=== PATIENT | male | born 1950 | race Caucasian/White ===

== ENCOUNTER 2017-07-17 11:03 | Day surgery (SDC) | payer MEDICARE, BC ==
[~2017-07-17 11:03] MED LIST: 0.9 % SODIUM CHLORIDE 10 ML DISP.SYRIN. IV; HYDROmorphone 2 MG/ML VIAL IV; LIDOCAINE 1% PF 2 ML VIAL. ID; MORPHINE SULFATE 2 MG/ML DISP.SYRIN. IV; ONDANSETRON PF 4 MG/2 ML VIAL. IV; PROCHLORPERAZINE 10 MG/2 ML VIAL. IV; fentaNYL PF VIAL 100 MCG/2 ML VIAL IV
[2017-07-17] MEDS: IV RINGERS,LACTATED 1000ML 1,000 ML IV (11:54)
[2017-07-17 12:26] LABS: ANION GAP 8 (6-14); BLOOD UREA NITROGEN 15 mg/dL (8-26); CALCIUM 8.4 mg/dL (8.5-10.1); CARBON DIOXIDE 31 mmol/L (21-32); CHLORIDE 103 mmol/L (98-107); CREATININE 0.8 mg/dL (0.7-1.3); GFR 95.8; GLUCOSE 131 mg/dL (70-99); MAGNESIUM 1.8 mg/dL (1.8-2.4); POTASSIUM 4.5 mmol/L (3.5-5.1); SODIUM 142 mmol/L (136-145)
[2017-07-17] MEDS ORDERED: PROPOFOL 20 ML IV (13:22)
== END 2017-07-17 15:33 | disposition home or self-care (01) ==
LOC: SURG 11:03
DX: I48.92 Unspecified atrial flutter (principal); I11.0 Hypertensive heart disease with heart failure; I50.9 Heart failure, unspecified; Z96.653 Presence of artificial knee joint, bilateral; Z98.41 Cataract extraction status, right eye; Z87.891 Personal history of nicotine dependence
CPT/HCPCS: 36415; 80048; 83735; 92960; 93005; J2704

== ENCOUNTER → 2018-02-23 | Outpatient (CLI) | payer MEDICARE, BC ==
[2017-07-17 14:11] VITALS: BP 138/80
[~2018-02-23] MED LIST changes: -0.9 % SODIUM CHLORIDE 10 ML DISP.SYRIN. IV; +AMLO10TA2 PO; +APIX5TAB PO; +ASPI-482 PO; +AZIT250T6 PO; +FURO-69 PO; +GUAI600T47 PO; -HYDROmorphone 2 MG/ML VIAL IV; -LIDOCAINE 1% PF 2 ML VIAL. ID; +LISI-334 PO; +METO100T7 PO; -MORPHINE SULFATE 2 MG/ML DISP.SYRIN. IV; -ONDANSETRON PF 4 MG/2 ML VIAL. IV; +POTA10TA12 PO; -PROCHLORPERAZINE 10 MG/2 ML VIAL. IV; +SIMV40TA3 PO; -fentaNYL PF VIAL 100 MCG/2 ML VIAL IV
--- NOTE | 2018-02-23 09:53 | CARD ---
MR#: [id number] Date of Study: 02/23/2018 Ordering Physician: SHON RUSSELL, Referring Physician: Kandace CUEVAS: YESSICA Hickey APPROVED REPORT EXAM: Two-dimensional and M-mode echocardiogram with Doppler and color Doppler. Other Information Quality : AverageHR: 66bpm Technically limited study due to body habitus. INDICATION Sick sinus syndrome RISK FACTORS Hypertension Obesity 2D DIMENSIONS RVDd3.9 (2.9-3.5cm)Left Atrium(2D)3.3 (1.6-4.0cm) IVSd1.5 (0.7-1.1cm)Aortic Root(2D)2.8 (2.0-3.7cm) LVDd4.8 (3.9-5.9cm)LVOT Diameter2.0 (1.8-2.4cm) PWd1.5 (0.7-1.1cm)LVDs3.5 (2.5-4.0cm) FS (%) 28.1 %SV59.2 ml LVEF(%)54.2 (>50%) Aortic Valve AoV Peak Jack.152.0cm/sAoV VTI27.3cm AO Peak GR.9.2mmHgLVOT Peak Jack.128.1cm/s LVOT VTI 26.33cmAO Mean GR.5mmHg [place] (VMAX)1.12ce3CDW (VTI)3.10cm2 AI P 1/2 Cobe327gf Mitral Valve MV E Uccvcpmq18.8cm/sMV DECEL [id number] MV A Phqfcmdf28.6cm/sMV LYX143xw E/A Ratio0.6MVA (PHT)1.52cm2 TDI E/Lateral E'8.7E/Medial E'8.7 Pulmonary Valve PV Peak Weprjcbh929.6cm/sPV Peak Grad.7mmHg Tricuspid Valve TR P. Ezdsxsjm365hz/sTR Peak Gr.11mmHg Pulmonary Vein S1 Ozulvjxz66.2cm/sD2 Pwjnjgge96.2cm/s LEFT VENTRICLE The left ventricle is normal size. There is mild to moderate concentric left ventricular hypertrophy. Proximal septal thickening is noted. The left ventricular systolic function is normal. The ejection fraction is estimated at 55-60%. There is normal LV segmental wall motion. Transmitral Doppler flow p attern is Grade I-abnormal relaxation pattern. RIGHT VENTRICLE The right ventricle is normal size. The right ventricular systolic function is normal. ATRIA The left atrium size is normal. The right atrium size is normal. The interatrial septum is intact wit h no evidence for an atrial septal defect or patent foramen ovale as noted on 2-D or Doppler imaging. AORTIC VALVE The aortic valve is mildly calcified. The aortic valve is not well visualized. Doppler and Color Flow revealed mild aortic regurgitation. There is no significant aortic valvular stenosis. There is no ao rtic valvular vegetation. MITRAL VALVE The mitral valve is mildly thickened. There is no evidence of mitral valve prolapse. There is no mitr al valve stenosis. Doppler and Color Flow revealed no mitral valve regurgitation noted. TRICUSPID VALVE The tricuspid valve leaflets are thickened , but open well. Doppler and Color Flow revealed trace tri cuspid regurgitation. There is no tricuspid valve prolapse or vegetation. There is no tricuspid valve stenosis. PULMONIC VALVE The pulmonic valve is not well visualized. Doppler and Color Flow revealed no pulmonic valvular regur gitation. There is no pulmonic valvular stenosis. GREAT VESSELS The aortic root is not well visualized. The IVC was not visualized. PERICARDIAL EFFUSION There is no pleural effusion. There is no evidence of significant pericardial effusion. Critical Notification Critical Value: No <Conclusion> The left ventricular systolic function is normal. The ejection fraction is estimated at 55-60%. There is normal LV segmental wall motion. Transmitral Doppler flow pattern is Grade I-abnormal relaxation pattern. Mild aortic regurgitation. Trace tricuspid regurgitation. There is no evidence of significant pericardial effusion. Signed by : Shon Russell, Electronically Approved : 02/23/2018 09:52:23
== END | disposition home or self-care (01) ==
LOC: ECHO 07:11
PROVIDERS: ATTEND Internal Medicine Cardiovascular Disease
DX: I35.1 Nonrheumatic aortic (valve) insufficiency (principal); I11.0 Hypertensive heart disease with heart failure; I50.9 Heart failure, unspecified; E11.9 Type 2 diabetes mellitus without complications; E78.5 Hyperlipidemia, unspecified; J44.1 Chronic obstructive pulmonary disease with (acute) exacerbation; K21.9 Gastro-esophageal reflux disease without esophagitis; Z87.891 Personal history of nicotine dependence; Z96.653 Presence of artificial knee joint, bilateral; Z82.49 Family history of ischemic heart disease and other diseases of the circulatory system
CPT/HCPCS: 93306

== ENCOUNTER → 2019-04-27 | Outpatient (CLI) | payer MEDICARE, BC ==
[2017-07-17 14:11] VITALS: BP 138/80
[~2019-04-27] MED LIST changes: -AMLO10TA2 PO; +AMLO10TA8 PO
--- NOTE | 2019-04-27 08:39 | CARD ---
MR#: [id number] Date of Study: 04/27/2019 Ordering Physician: SHON POWELL, Referring Physician: SHON POWELL Tech: Kathie Pina RDCS APPROVED REPORT EXAM: Two-dimensional and M-mode echocardiogram with Doppler and color Doppler. Other Information Quality : Technically LimitedHR: 78bpm Rhythm : OtherTechnically limited study due to body habitus, heart rate, and smoking. INDICATION SSS 2D DIMENSIONS RVDd3.7 (2.9-3.5cm)Left Atrium(2D)3.5 (1.6-4.0cm) IVSd1.6 (0.7-1.1cm)Aortic Root(2D)3.5 (2.0-3.7cm) LVDd4.3 (3.9-5.9cm)LVOT Diameter2.2 (1.8-2.4cm) PWd1.2 (0.7-1.1cm)LVDs3.5 (2.5-4.0cm) FS (%) 17.9 %SV30.9 ml LVEF(%)37.5 (>50%) Aortic Valve AoV Peak Jack.130.3cm/sAoV VTI23.3cm AO Peak GR.6.8mmHgLVOT Peak Jack.93.6cm/s AO Mean GR.4mmHgAVA (VMAX)2.80cm2 [place] (VTI)2.73tr9OR P 1/2 Xbun717xb Mitral Valve MV E Exivjily32.0cm/sMV DECEL UBRP435nb MV A Lkocchyz712.3cm/sE/A Ratio0.6 Pulmonary Valve PV Peak Ilfjytob06.5cm/s Tricuspid Valve TR P. Iikhnyqy267cs/sRAP BXKRTLTG4naHo TR Peak Gr.85liXpIJMK08yaKt LEFT VENTRICLE The left ventricle is normal size. There is mild to moderate concentric left ventricular hypertrophy. The systolic function is severely impaired. EF 30% There is global hypokinesis of the left ventricle with septal motion suggestive of conduction defect. Tissue Doppler imaging reveals moderate left aliya tricular diastolic dysfunction. RIGHT VENTRICLE The right ventricle is borderline dilated. There is normal right ventricular wall thickness. The righ t ventricular systolic function is normal. Pacer lead noted in RV/RA. ATRIA The left atrium size is normal. The right atrium size is normal. The interatrial septum is intact wit h no evidence for an atrial septal defect or patent foramen ovale as noted on 2-D or Doppler imaging. AORTIC VALVE The aortic valve is mildly calcified. The aortic valve is trileaflet. Doppler and Color Flow revealed mild aortic regurgitation. There is no significant aortic valvular stenosis. MITRAL VALVE Mitral annular calcification is mild. There is no evidence of mitral valve prolapse. There is no mitr al valve stenosis. Doppler and Color-flow revealed trace to mild mitral regurgitation. TRICUSPID VALVE The tricuspid valve is normal in structure and function. Doppler and Color Flow revealed mild tricusp id regurgitation. The PA pressure was estimated at 37 mmHg. There is no tricuspid valve prolapse or v egetation. There is no tricuspid valve stenosis. PULMONIC VALVE The pulmonic valve is not well visualized. GREAT VESSELS The aortic root is normal in size. The ascending aorta is normal in size. The IVC is normal in size a nd collapses >50% with inspiration. PERICARDIAL EFFUSION There is no evidence of significant pericardial effusion. Critical Notification Critical Value: No <Conclusion> The systolic function is severely impaired. EF 30% There is global hypokinesis of the left ventricle with septal motion suggestive of conduction defect. Pacer lead noted in RV/RA. Doppler and Color Flow revealed mild aortic regurgitation. Signed by : Ambrose Johnson, Electronically Approved : 04/27/2019 08:38:57
== END | disposition home or self-care (01) ==
LOC: ECHO 07:12
PROVIDERS: ATTEND Internal Medicine Cardiovascular Disease
DX: I08.3 Combined rheumatic disorders of mitral, aortic and tricuspid valves (principal); I49.5 Sick sinus syndrome; F17.200 Nicotine dependence, unspecified, uncomplicated
CPT/HCPCS: 93306

== ENCOUNTER 2019-05-09 06:56 | Inpatient (IN) | payer MEDICARE, BC ==
[~2019-05-09] VITALS: Ht 180.3 cm; Wt 118.9 kg
[2019-05-09] VITALS (17 sets, daily range): BP systolic 107–140; BP diastolic 62–85
[~2019-05-09 06:56] MED LIST changes: +AMOX500C PO
[2019-05-09] MEDS ORDERED: APIX2.5T PO (07:26)
[2019-05-09] MEDS ORDERED: CRESTOR20 MG PO (07:26)
[2019-05-09] MEDS ORDERED: LISI-334 PO (07:26)
[2019-05-09] MEDS ORDERED: METF500T11 PO (07:26)
[2019-05-09] MEDS ORDERED: METO25TA4 PO (07:26)
[2019-05-09 07:39] LABS: HEMATOCRIT 47.1 % (39.0-53.0); HEMOGLOBIN 15.9 g/dL (13.0-17.5); RED BLOOD COUNT 5.1 x10^6/uL (4.30-5.70); RED CELL DISTRIBUTION WIDTH 14.7 % (11.5-14.5); WHITE BLOOD COUNT 9.9 x10^3/uL (4.0-11.0)
[2019-05-09] MEDS ORDERED: APIX5TAB PO (07:43)
[2019-05-09 07:44] LABS: CALCIUM 9.1 mg/dL (8.5-10.1); GFR 73.9; POTASSIUM 4.8 mmol/L (3.5-5.1)
[2019-05-09] MEDS ORDERED: LIDOCAINE 1% PF 2 ML VIAL. ONE (07:44)
[2019-05-09] MEDS ORDERED: IODIXANOL 320 MG/ML 100 ML VIAL. ONE ×2 (07:44→09:51)
[2019-05-09 07:49] LABS: PROTHROMBIN TIME PATIENT 13.6 SEC (11.7-14.0)
[2019-05-09] MEDS ORDERED: fentaNYL PF VIAL 100 MCG/2 ML VIAL ONE (08:14)
[2019-05-09] MEDS ORDERED: HEPARIN for IV BOLUS 10,000 UNIT/10 ML VIAL. ONE (08:15)
[2019-05-09] MEDS ORDERED: MIDAZOLAM HCL/PF 5 MG/5 ML VIAL. ONE (08:15)
[2019-05-09] MEDS ORDERED: NITROGLYCERIN 200 MCG/2 ML SYRINGE FOR CATH/VASC LAB. ONE (08:15)
[2019-05-09] MEDS ORDERED: VERAPAMIL 5 MG/2 ML VIAL. ONE (08:15)
[2019-05-09] MEDS ORDERED: VERAPAMIL 5 MG/2 ML VIAL. IART ONE (09:45)
[2019-05-09] MEDS ORDERED: LIDOCAINE 1% PF 2 ML VIAL. INJ ONE (09:45)
[2019-05-09] MEDS ORDERED: MIDAZOLAM HCL/PF 5 MG/5 ML VIAL. IV ONE (09:45)
[2019-05-09] MEDS ORDERED: HEPARIN for IV BOLUS 10,000 UNIT/10 ML VIAL. IART ONE (09:45)
[2019-05-09] MEDS ORDERED: IODIXANOL 320 MG/ML 100 ML VIAL. IART ONE (09:45)
[2019-05-09] MEDS ORDERED: NITROGLYCERIN 200 MCG/2 ML SYRINGE FOR CATH/VASC LAB. IART ONE (09:45)
[2019-05-09] MEDS ORDERED: fentaNYL PF VIAL 100 MCG/2 ML VIAL IV ONE (09:45)
[2019-05-09] MEDS ORDERED: CONTRAST GIVEN. MC PRN (10:00)
[2019-05-09] MEDS ORDERED: HEPARIN for IV BOLUS 10,000 UNIT/10 ML VIAL. IV ONE (10:00)
[2019-05-09] MEDS: IV 1/2 NORMAL SALINE 1,000 ML IV SCH (10:16)
--- NOTE | 2019-05-09 10:16 | PDOC ---
MODERATE SEDATION ASSESSMENT RISKS/ALTERNATIVES Risks/Alternatives Risks and alternatives of this type of sedation and procedure discussed with: RISK/ALTERNATIVES: Patient H & P ON CHART H & P H & P on chart and reviewed for co-morbid conditions and appropriate labs. H&P ON CHART: Yes STATUS PREG STATUS ASSESSED: N/A MEDS/ALLERGIES REVIEWED Meds/Allergies Reviewed Medications and Allergies including time and route of recently administered narcotics and sedatives. MEDS/ALLERGIES REVIEWED: Yes ASA RATING ASA RATING: II AIRWAY ASSESSMENT Airway Assessment Airway patency, oral function limitations, presence of caps, crowns, dentures, partials, and ability to extend neck assessed. AIRWAY ASSESSMENT: Yes MALLAMPATI SCORE MALLAMPATI SCORE: II PRE-SEDATION ASSESSMENT PRE-SEDATION ASSESSMENT: Yes SHON POWELL MD May 09, 2019 10:16
--- NOTE | 2019-05-09 10:29 | CARD ---
MR#: [id number] Date of Study: 05/09/2019 Ordering Physician: SHON RUSSELL, Referring Physician: SHON RUSSELL, Tech: RT Maegan (R) LESLIE APPROVED REPORT Technologist: RT Maegan (R) LESLIE Nurse: Dana Hartmann R.N. Procedure(s) performed: 1. Left heart catheterization and selective coronary angiography via right t ransradial approach 2. Instant wave free ratio (IFR) measurement the right coronary artery stenosis FLOURO TIME 8.7 MINUTES DOSE 78.66 Gycm2 CONTRAST 123CC'S VISIPAQUE MODERATE SEDATION: 48 MINUTES INDICATION The indication(s) include : Cardiomyopathy. [facility] Clinical Frailty Scale [facility] Clinical Frailty Scale: Mildly Frail Heart Failure Heart Failure: Yes If Yes, Newly Diagnosed: No If Yes, HF Type: Diastolic If Yes, NYHA Class: Class II PROCEDURE NARRATIVE After explaining the risks, benefits and alternative options, informed consent was obtained from ivonne ent. Patient was brought to the cardiac Installation Specialist and right wrist was prepped and draped in the usual fashion after confirming a positive modified Ascencion's test. Arterial access was obtained in the righ t radial artery and a 6 Canadian sheath was inserted. 6 Canadian Manuel catheter was used to perform stephania ective angiography of the left and right coronary arteries. LVEDP and transaortic gradients remeasure d. Left ventriculography was not performed due to availability of recent 2-D echocardiogram. Since patient was found to have angiographically borderline significant stenosis involving the distal segment of the right coronary artery, a decision was made to perform physiologic assessment using I nstant wave free ratio (IFR). The right coronary artery was engaged with a 6 Canadian JR4 guide cathete r and the stenosis in the distal segment of RCA was crossed with a Jarrell verrata PressureWire. IFR measurement was made that came back insignificant at 1.0. Hence no interventions were performed. Ivonne ent tolerated the procedure well. Hemostasis was achieved using TR band. There were no immediate co mplications. The following findings were noted. FINDINGS 1. Hemodynamics: Left ventricular end-diastolic pressure of 21 mmHg. No pullback gradient across th e aortic valve. 2. Coronary angiography: a. The left anterior descending artery arose from the left sinus of Valsalva and did not show any si gnificant stenosis. c. The left circumflex artery had an anomalous takeoff from the right coronary artery and did not sh ow any significant stenosis. d. The right coronary artery was a large and dominant vessel arising from the right sinus of Valsalv a that gave rise to anomalous LCx as stated above and showed 50% stenosis involving the distal segmen t there was physiologically insignificant based on IFR measurement of 1.0. Conclusion Nonobstructive coronary artery disease involving the right coronary artery, proved physiologically in significant with IFR measurement. 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 Recommendations Optimization of medical therapy for nonischemic cardiomyopathy. Repeat 2-D echo in 3 months to evaluate the need for pacemaker upgrade to AICD. Signed by : Shon Russell, Electronically Approved : 05/09/2019 10:29:25
[2019-05-09] MEDS ORDERED: NITROGLYCERIN SUBLINGUAL 0.4 MG BOTTLE OF 25. SL PRN (10:30)
[2019-05-09] MEDS ORDERED: AMIO200T4 PO ×2 (10:45)
[2019-05-09] MEDS: AMIODARONE HCL 200 MG TABLET. PO SCH ×2 (12:40→20:51)
--- NOTE | 2019-05-09 13:15 | NUR ---
Patient arrived to room 201 via bed from [facility]. Patient A&OX4. No complaints of pain. VSS. R radial cath site CDI, warm to touch, pulse present. The patient, NORBERTO GRAHAM, 68 y/o, M admitted by SHON POWELL MD, was given written information regarding hospital policies, unit procedures and contact persons. Valuables were checked and noted. Will continue to monitor.
--- NOTE | 2019-05-09 13:34 | NUR ---
Patient came in outpatient for Cardiac Cath for SOA. Patient arrived to outpatient on no oxygen with 02 SAT 87%, placed on 2 liters/NC with 02 sat 93%. After cardiac cath unable to titrate down oxygen, per Dr. Russell admit patient. Dr. Simons notified via telephone and has agreed to admit patient to [facility] due to starting on Amiodarone po. Patient given Amiodarone 400mg PO, report called to SHAYLA Jones on [address]. Patient transported to 201 via cart.
--- NOTE | 2019-05-09 13:35 | PDOC1 ---
History and Physical Date of Admission Date of Admission DATE: 05/09/19 TIME: 13:31 Identification/Chief Complaint Chief Complaint Hypoxia Source Source: Patient History of Present Illness History of Present Illness Mr Ocampo is a 66 yo morbidly obese male, HTN, COPD, likely ANDREIA, ex-smoker, cardiomyopathy EF 30-35% who is being admitted after a cardiac catheterization. The patient normally does not use oxygen. However, due to low oxygen saturation in the PACU, he was placed on 2 liters of nasal cannula. Saturation is in the low 90s. His CXR is pending. He is noted in non-sustained V-tach, given amiodarone in greens laborer, admit to [facility] for further care. He has had shortness of breath for almost a month (3 weeks) and it was felt this is likely cardiac related given his low EF. He has been progressively short of breath while working out on his treadmill. He does endorse daytime somnolence and poor sleep recently. Past Medical History Cardiovascular: HTN, Hyperlipidemia Pulmonary: COPD CENTRAL NERVOUS SYSTEM: Other GI: GERD Heme/Onc: No pertinent hx Hepatobiliary: No pertinent hx Psych: No pertinent hx Musculoskeletal: Osteoarthritis Rheumatologic: No pertinent hx Infectious disease: No pertinent hx Renal/: No pertinent hx Endocrine: Diabetes Past Surgical History Past Surgical History: Cataract Removal, Total knee replacement, Other Family History Family History: Coronary Artery Disease Social History Smoke: Quit (12 years) ALCOHOL: occassional Drugs: None Current Medications Current Medications Current Medications Iodixanol (Visipaque 320) 100 ml STK-MED ONCE .ROUTE ; Start 05/09/19 at 07:44; Stop 05/09/19 at 07:44; Status DC Lidocaine HCl (Xylocaine-Mpf 1% 2ml Vial) 2 ml STK-MED ONCE .ROUTE ; Start 05/09/19 at 07:44; Stop 05/09/19 at 07:44; Status DC Heparin Sodium/ Sodium Chloride 1,000 ml @ As Directed STK-MED ONCE .ROUTE ; Start 05/09/19 at 07:44; Stop 05/09/19 at 07:44; Status DC Fentanyl Citrate (Fentanyl 2ml Vial) 100 mcg STK-MED ONCE .ROUTE ; Start 05/09/19 at 08:14; Stop 05/09/19 at 08:15; Status DC Midazolam HCl (Versed) 5 mg STK-MED ONCE .ROUTE ; Start 05/09/19 at 08:15; Stop 05/09/19 at 08:15; Status DC Heparin Sodium (Porcine) (Heparin Sodium) 10,000 unit STK-MED ONCE .ROUTE ; Start 05/09/19 at 08:15; Stop 05/09/19 at 08:15; Status DC Verapamil HCl (Verapamil) 5 mg STK-MED ONCE .ROUTE ; Start 05/09/19 at 08:15; Stop 05/09/19 at 08:15; Status DC Nitroglycerin (Nitroglycerin) 200 mcg STK-MED ONCE .ROUTE ; Start 05/09/19 at 08:15; Stop 05/09/19 at 08:15; Status DC Nitroglycerin (Nitroglycerin) 200 mcg 1X ONCE IART Last administered on 05/09/19at 10:09; Start 05/09/19 at 09:45; Stop 05/09/19 at 09:48; Status DC Verapamil HCl (Verapamil) 2.5 mg 1X ONCE IART Last administered on 05/09/19at 10:12; Start 05/09/19 at 09:45; Stop 05/09/19 at 09:48; Status DC Heparin Sodium (Porcine) (Heparin Sodium) 2,500 unit 1X ONCE IART Last administered on 05/09/19at 10:12; Start 05/09/19 at 09:45; Stop 05/09/19 at 09:48; Status DC Heparin Sodium/ Sodium Chloride (HEPARIN for ARTERIAL LINE FLUSH) 1,000 unit 1X ONCE IART Last administered on 05/09/19at 10:09; Start 05/09/19 at 09:45; Stop 05/09/19 at 09:48; Status DC Midazolam HCl (Versed) 5 mg 1X ONCE IV Last administered on 05/09/19at 10:10; Start 05/09/19 at 09:45; Stop 05/09/19 at 09:48; Status DC Fentanyl Citrate (Fentanyl 2ml Vial) 100 mcg 1X ONCE IV Last administered on 05/09/19at 10:10; Start 05/09/19 at 09:45; Stop 05/09/19 at 09:48; Status DC Iodixanol (Visipaque 320) 100 ml 1X ONCE IART Last administered on 05/09/19at 10:09; Start 05/09/19 at 09:45; Stop 05/09/19 at 09:48; Status DC Lidocaine HCl (Xylocaine-Mpf 1% 2ml Vial) 2 ml 1X ONCE INJ Last administered on 05/09/19at 10:09; Start 05/09/19 at 09:45; Stop 05/09/19 at 09:48; Status DC Info (CONTRAST GIVEN -- Rx MONITORING) 1 each PRN DAILY PRN MC SEE COMMENTS; Start 05/09/19 at 10:00; Stop 05/11/19 at 09:59 Heparin Sodium (Porcine) (Heparin Sodium) 5,000 unit 1X ONCE IV Last administered on 05/09/19at 10:13; Start 05/09/19 at 10:00; Stop 05/09/19 at 10:01; Status DC Iodixanol (Visipaque 320) 100 ml STK-MED ONCE .ROUTE ; Start 05/09/19 at 09:51; Stop 05/09/19 at 09:51; Status DC Sodium Chloride 1,000 ml @ 60 mls/hr [id number] IV ; Start 05/09/19 at 10:16; Stop 05/10/19 at 10:15 Nitroglycerin (Nitrostat) 0.4 mg PRN Q5MIN PRN SL CHEST PAIN; Start 05/09/19 at 10:30; Stop 05/10/19 at 10:29 Amiodarone HCl (Cordarone) 400 mg BID PO Last administered on 05/09/19at 12:40; Start 05/09/19 at 12:40; Stop 05/16/19 at 12:39 Amiodarone HCl (Cordarone) 200 mg DAILY PO ; Start 05/17/19 at 09:00; Stop 05/18/19 at 08:59 Active Scripts Active Reported Amiodarone Hcl 200 Mg Tablet 1 Tab PO DAILY 30 Days Amiodarone Hcl 200 Mg Tablet 400 Mg PO BID 7 Days Eliquis (Apixaban) 5 Mg Tablet 5 Mg PO BID Metoprolol Tartrate 25 Mg Tablet 1 Tab PO BID Lisinopril 20 Mg Tablet 1 Tab PO DAILY Crestor (Rosuvastatin Calcium) 20 Mg Tablet 1 Tab PO DAILY Metformin Hcl Er (Metformin Hcl) 500 Mg Tab.er.24h 500 Mg PO DAILYWBKFT Potassium Chloride 10 Meq Capsule.er 10 Meq PO DAILY Allergies Allergies: Coded Allergies: No Known Drug Allergies (Unverified , 07/17/17) ROS General: YES: Fatigue, Malaise; No: Chills, Night Sweats, Appetite, Other PSYCHOLOGICAL ROS: No: Anxiety, Behavioral Disorder, Concentration difficultie, Decreased libido, Depression, Disorientation, Hallucinations, Hostility, Irritablity, Memory difficulties, Mood Swings, Obsessive thoughts, Physical abuse, Sexual abuse, Sleep disturbances, Suicidal ideation, Other Eyes: No Blurry vision, No Decreased vision, No Double vision, No Dry eyes, No Excessive tearing, No Eye Pain, No Itchy Eyes, No Loss of vision, No Photophobia, No Scotomata, No Uses contacts, No Uses glasses, No Other HEENT: No: Heacaches, Visual Changes, Hearing change, Nasal congestion, Nasal discharge, Oral lesions, Sinus pain, Sore Throat, Epistaxis, Sneezing, Snoring, Tinnitus, Vertigo, Vocal changes, Other ALLERGY AND IMMUNOLOGY: No: Hives, Insect Bite Sensitivity, Itchy/Watery Eyes, Nasal Congestion, Post Nasal Drip, Seasonal Allergies, Other Hematological and Lymphatic: No: Bleeding Problems, Blood Clots, Blood Transfusions, Brusing, Night Sweats, Pallor, Swollen Lymph Nodes, Other ENDOCRINE: No: Breast Changes, Galactorrhea, Hair Pattern Changes, Hot Flashes, Malaise/lethargy, Mood Swings, Palpitations, Polydipsia/polyuria, Skin Changes, Temperature Intolerance, Unexpected Weight Changes, Other Breast: No New/Changing Breast Lumps, No Nipple changes, No Nipple discharge, No Other Respiratory: YES: Shortness of breath; No: Cough, Hemoptysis, Orthopnea, Pleuritic Pain, SOB with excertion, Sputum Changes, Stridor, Tachypnea, Wheezing, Other Cardiovascular: yes Orthopnea, yes Paroxysmal Noc. Dyspnea; No Chest Pain, No Palpitations, No Edema, No Lt Headedness, No Other Gastrointestinal: No Nausea, No Vomiting, No Abdominal Pain, No Diarrhea, No Constipation, No Melena, No Hematochezia, No Other Genitourinary: No Dysuria, No Frequency, No Incontinence, No Hematuria, No Retention, No Discharge, No Urgency, No Pain, No Flank Pain, No Other, No , No , No , No , No , No , No Musculoskeletal: No Gait Disturbance, No Joint Pain, No Joint Stiffness, No Joint Swelling, No Muscle Pain, No Muscular Weakness, No Pain In:, No Swelling In:, No Other Neurological: No Behavorial Changes, No Bowel/Bladder ControlChng, No Confusion, No Dizziness, No Gait Disturbance, No Headaches, No Impaired Coord/balance, No Memory Loss, No Numbness/Tingling, No Seizures, No Speech Problems, No Tremors, No Visual Changes, No Weakness, No Other Skin: No Dry Skin, No Eczema, No Hair Changes, No Lumps, No Mole Changes, No Mottling, No Nail Changes, No Pruritus, No Rash, No Skin Lesion Changes, No Other, No Acne Physical Exam General: Alert, Oriented X3, Cooperative, No acute distress HEENT: Atraumatic, PERRLA, EOMI, Mucous membr. moist/pink Lungs: Other (Prolonged expiratory phase) Heart: S1S2, RRR, no thrills, no rubs Abdomen: Normal bowel sounds, Soft, No tenderness, No hepatosplenomegaly, No masses Rectal Exam: not examined Extremities: No clubbing, No cyanosis, No edema, Normal pulses, No tenderness/swelling Skin: No rashes, No breakdown, No significant lesion Neuro: Normal gait, Normal speech, Strength at 5/5 X4 ext, Normal tone, Sensation intact, Cranial nerves 3-12 NL, Reflexes 2+ Psych/Mental Status: Mental status NL, Mood NL Vitals Vitals Vital Signs Date Time Temp Pulse Resp B/P (MAP) Pulse Ox O2 Delivery O2 Flow Rate FiO2 05/09/19 12:40 73 128/65 05/09/19 12:30 22 93 Nasal Cannula 2.0 05/09/19 07:30 97.3 97.3 Labs Labs Laboratory Tests Test 05/09/19 07:25 White Blood Count 9.9 x10^3/uL (4.0-11.0) Red Blood Count 5.10 x10^6/uL (4.30-5.70) Hemoglobin 15.9 g/dL (13.0-17.5) Hematocrit 47.1 % (39.0-53.0) Mean Corpuscular Volume 92 fL (79-100) Mean Corpuscular Hemoglobin 31 pg (25-35) Mean Corpuscular Hemoglobin Concent 34 g/dL (31-37) Red Cell Distribution Width 14.7 % (11.5-14.5) Platelet Count 163 x10^3/uL (140-400) Prothrombin Time 13.6 SEC (11.7-14.0) Prothromb Time International Ratio 1.1 (0.8-1.1) Sodium Level 143 mmol/L (136-145) Potassium Level 4.8 mmol/L (3.5-5.1) Chloride Level 105 mmol/L (98-107) Carbon Dioxide Level 29 mmol/L (21-32) Anion Gap 9 (6-14) Blood Urea Nitrogen 20 mg/dL (8-26) Creatinine 1.0 mg/dL (0.7-1.3) Estimated GFR (Cockcroft-Gault) 73.9 Glucose Level 174 mg/dL (70-99) Calcium Level 9.1 mg/dL (8.5-10.1) Laboratory Tests Test 05/09/19 07:25 White Blood Count 9.9 x10^3/uL (4.0-11.0) Red Blood Count 5.10 x10^6/uL (4.30-5.70) Hemoglobin 15.9 g/dL (13.0-17.5) Hematocrit 47.1 % (39.0-53.0) Mean Corpuscular Volume 92 fL (79-100) Mean Corpuscular Hemoglobin 31 pg (25-35) Mean Corpuscular Hemoglobin Concent 34 g/dL (31-37) Red Cell Distribution Width 14.7 % (11.5-14.5) Platelet Count 163 x10^3/uL (140-400) Prothrombin Time 13.6 SEC (11.7-14.0) Prothromb Time International Ratio 1.1 (0.8-1.1) Sodium Level 143 mmol/L (136-145) Potassium Level 4.8 mmol/L (3.5-5.1) Chloride Level 105 mmol/L (98-107) Carbon Dioxide Level 29 mmol/L (21-32) Anion Gap 9 (6-14) Blood Urea Nitrogen 20 mg/dL (8-26) Creatinine 1.0 mg/dL (0.7-1.3) Estimated GFR (Cockcroft-Gault) 73.9 Glucose Level 174 mg/dL (70-99) Calcium Level 9.1 mg/dL (8.5-10.1) Images Images CXR - [address], no formal read yet. Possible chronic changes VTE Prophylaxis Ordered VTE Prophylaxis Devices: Yes VTE Pharmacological Prophylaxi: Yes Assessment/Plan Assessment/Plan A/P: Shortness of breath - likely combination of suspected chronic obstructive pulmonary disease with mild acute exacerbation and also possible cor pulmonale given his low EF. Chronic combined Systolic and diastolic CHF - seems to be in mild acute exacerbation Chronic compensated hypercapnic respiratory failure - no ABG available, this was noted previously Likely obstructive sleep apnea - excessive daytime somnolence, has never had formal sleep study. He will benefit from outpatient sleep study. Hypertension - will cont home meds Non-occlusive CAD - s/p cath today Non-sustained V-tach - started on amiodarone. Cardiology following. H/o aflutter - s/p d/c cardioversion previously. On eliquis, will continue FEN - Cardiac PPX - Eliquis FULL CODE Dispo - inpatient for respiratory distress, admit to [facility] SUZANNE TONY MD May 09, 2019 13:35
--- NOTE | 2019-05-09 15:02 | PDOC ---
PULMONARY PROGRESS NOTES Vitals Vital Signs Date Time Temp Pulse Resp B/P (MAP) Pulse Ox O2 Delivery O2 Flow Rate FiO2 05/09/19 13:25 97.6 70 20 126/72 (90) 95 Nasal Cannula 2.0 97.6 General: Alert, No acute distress Lungs: Clear Cardiovascular: S1 Abdomen: Soft Extremities: Other Labs Laboratory Tests Test 05/09/19 07:25 White Blood Count 9.9 x10^3/uL (4.0-11.0) Red Blood Count 5.10 x10^6/uL (4.30-5.70) Hemoglobin 15.9 g/dL (13.0-17.5) Hematocrit 47.1 % (39.0-53.0) Mean Corpuscular Volume 92 fL (79-100) Mean Corpuscular Hemoglobin 31 pg (25-35) Mean Corpuscular Hemoglobin Concent 34 g/dL (31-37) Red Cell Distribution Width 14.7 % (11.5-14.5) Platelet Count 163 x10^3/uL (140-400) Prothrombin Time 13.6 SEC (11.7-14.0) Prothromb Time International Ratio 1.1 (0.8-1.1) Sodium Level 143 mmol/L (136-145) Potassium Level 4.8 mmol/L (3.5-5.1) Chloride Level 105 mmol/L (98-107) Carbon Dioxide Level 29 mmol/L (21-32) Anion Gap 9 (6-14) Blood Urea Nitrogen 20 mg/dL (8-26) Creatinine 1.0 mg/dL (0.7-1.3) Estimated GFR (Cockcroft-Gault) 73.9 Glucose Level 174 mg/dL (70-99) Calcium Level 9.1 mg/dL (8.5-10.1) Laboratory Tests Test 05/09/19 07:25 White Blood Count 9.9 x10^3/uL (4.0-11.0) Red Blood Count 5.10 x10^6/uL (4.30-5.70) Hemoglobin 15.9 g/dL (13.0-17.5) Hematocrit 47.1 % (39.0-53.0) Mean Corpuscular Volume 92 fL (79-100) Mean Corpuscular Hemoglobin 31 pg (25-35) Mean Corpuscular Hemoglobin Concent 34 g/dL (31-37) Red Cell Distribution Width 14.7 % (11.5-14.5) Platelet Count 163 x10^3/uL (140-400) Prothrombin Time 13.6 SEC (11.7-14.0) Prothromb Time International Ratio 1.1 (0.8-1.1) Sodium Level 143 mmol/L (136-145) Potassium Level 4.8 mmol/L (3.5-5.1) Chloride Level 105 mmol/L (98-107) Carbon Dioxide Level 29 mmol/L (21-32) Anion Gap 9 (6-14) Blood Urea Nitrogen 20 mg/dL (8-26) Creatinine 1.0 mg/dL (0.7-1.3) Estimated GFR (Cockcroft-Gault) 73.9 Glucose Level 174 mg/dL (70-99) Calcium Level 9.1 mg/dL (8.5-10.1) Medications Active Scripts Medications Dose Route/Sig Max Daily Dose Days Date Category Amiodarone Hcl 200 Mg Tablet 1 Tab PO DAILY 30 05/09/19 Reported Amiodarone Hcl 200 Mg Tablet 400 Mg PO BID 7 05/09/19 Reported Eliquis (Apixaban) 5 Mg Tablet 5 Mg PO BID 05/09/19 Reported Metoprolol Tartrate 25 Mg Tablet 1 Tab PO BID 05/09/19 Reported Lisinopril 20 Mg Tablet 1 Tab PO DAILY 05/09/19 Reported Crestor (Rosuvastatin Calcium) 20 Mg Tablet 1 Tab PO DAILY 05/09/19 Reported Metformin Hcl Er (Metformin Hcl) 500 Mg Tab.er.24h 500 Mg PO DAILYWBKFT 05/09/19 Reported Potassium Chloride 10 Meq Capsule.er 10 Meq PO DAILY 04/06/17 Reported Impression . FULL NOTE DICTATED THANKS A/C CHF ACUTE RESP FAILURE SEC TO ABOVE AND SHUNTING FROM OBESITY ANDREIA SEC PULM HTN SEE ORDERS HENRY NESBITT MD May 09, 2019 15:02
[2019-05-09] MEDS ORDERED: ATOR40TA59 PO (15:50)
[2019-05-09] MEDS ORDERED: TAMS0.4C97 PO (15:50)
[2019-05-09] MEDS ORDERED: OMEP20CA10 PO (15:50)
--- NOTE | 2019-05-09 16:04 | RAD ---
CHEST PA LATERAL History: Hypoxia Comparison: April 07, 2017. Findings: Hyperinflation. Left basilar linear atelectasis or scarring. No consolidation or pleural effusion. Enlarged cardiac silhouette. No pneumothorax. Left-sided pacemaker, unchanged. Impression: 1. Hyperinflation. 2. Mild left basilar linear atelectasis or scarring. Electronically signed by: Herber Sawant DO (05/09/2019 4:02 PM) [facility]
[2019-05-09] MEDS: APIXABAN 5 MG TABLET. PO SCH (20:52)
[2019-05-09] MEDS: METOPROLOL TART IMMED RELEASE 25 MG TABLET. PO SCH (20:52)
[2019-05-09] MEDS ORDERED: ATORVASTATIN CALCIUM 40 MG TABLET. PO SCH (21:00)
--- NOTE | 2019-05-10 02:05 | CONS ---
DATE OF CONSULTATION: 05/09/2019 ATTENDING PHYSICIAN: Dr. Russell. REASON FOR CONSULTATION: The patient is seen in pulmonary consultation at the request of Dr. Russell for hypoxemia, possible obstructive sleep apnea. HISTORY OF PRESENT ILLNESS: The patient is a 68-year-old obese individual who is relatively active. He started noticing over the last 3-4 weeks that he was unable to tolerate his activity. He is walking on the treadmill. He normally walks for approximately 30 minutes. He noticed that he was walking not more than 15-20 and was becoming more short of breath. The patient was admitted and underwent a cardiac catheterization, which revealed cardiomyopathy with ejection fraction of 30-25% and nonischemic in nature. He was also noted to be hypoxemic. He is currently on 2 liters of oxygen supplementation. I was asked to see him in consultation. His past pulmonary history is remarkable for COPD, unknown FEV1. He does have symptoms of chronic bronchitis. He is currently on no oxygen supplementation, quit tobacco 16 years ago. He has one acute exacerbation of chronic obstructive pulmonary disease, does not use any metered dose inhalers at home. REVIEW OF SYSTEMS: CONSTITUTIONAL: No fever or chills. EYES: No change in visual acuity. HENT: No nasal congestion or sore throat. PULMONARY: As indicated above. Sleep hygiene reveals that he does snore. He awakens multiple times throughout the night. In the morning, he awakens unrefreshed from sleep and he does experience excessive daytime sleepiness. GASTROINTESTINAL: No nausea, vomiting, diarrhea. GENITOURINARY: No dysuria or frequency. MUSCULOSKELETAL: He does have some underlying osteoarthritis. Otherwise, no local muscle aches or joint pains. SKIN: No new skin rashes. NEUROLOGIC: No headaches, diplopia or blurred vision. PAST MEDICAL HISTORY: Otherwise remarkable for hypertension, hyperlipidemia, COPD, obesity, gastroesophageal reflux, type 2 diabetes, coronary artery disease as described above. PAST SURGICAL HISTORY: Status post cataract removal, total knee replacement. FAMILY HISTORY: Remarkable for coronary artery disease. SOCIAL HISTORY: Occasional use of alcohol. He drove a truck for many years. He currently denies tobacco use, quit 16 years ago. CURRENT MEDICATIONS: List was reviewed. PHYSICAL EXAMINATION: VITAL SIGNS: Stable. O2 saturation was greater than 92%, currently on 2 liters. HEENT: Eyes, the sclerae were nonicteric. NECK: Jugular venous distention could not be assessed secondary to body habitus. CHEST: Full expansion. LUNGS: Adequate airway flow, no wheezes. CARDIOVASCULAR: Regular rate and rhythm with S1, S2, no S3. ABDOMEN: Obese. EXTREMITIES: No clubbing, cyanosis or pitting edema. NEUROLOGICAL: The patient was awake, alert, following commands. A detailed neuro exam was not performed. LABORATORY DATA: White count was 9.9, hemoglobin 15, hematocrit of 47. Electrolytes were noted. BUN and creatinine were normal. INR was 1.1. Chest x-ray was reviewed. There are no acute infiltrates. He does have a pacemaker in place. IMPRESSION: 1. Hypoxemia/acute hypoxemic respiratory failure secondary to chronic obstructive pulmonary disease, morbid obesity, leading to shunting. 2. Clinical presentation compatible with obstructive sleep apnea. 3. Suspect secondary pulmonary hypertension. 4. Nonischemic cardiomyopathy with ejection fraction of 30-25%. 5. Robhi-ly-gdbsuww diastolic heart failure. 6. Kjzqi-ji-macvfqx systolic heart failure. 7. Morbid obesity. PLAN: 1. We will continue support with oxygen supplementation. 2. Diurese. 3. Obtain 6-minute walk. 4. Outpatient polysomnogram. 5. The patient instructed on the importance of continuous abstinence from tobacco use. 6. Outpatient pulmonary function testing and surveillance CT of the chest. I do appreciate the privilege in sharing in the patient's care. HENRY NESBITT MD DR: ABHILSAH/cedric JOB#: [id number] / [id number]
[2019-05-10] MEDS: IV 1/2 NORMAL SALINE 1,000 ML IV SCH (02:56)
[2019-05-10 03:07] VITALS: BP 133/76
[2019-05-10 07:00] VITALS: BP 149/78
[2019-05-10] MEDS ORDERED: LISINOPRIL 20 MG TABLET PO SCH (09:00)
[2019-05-10] MEDS ORDERED: AMIODARONE HCL 200 MG TABLET. PO SCH (09:00)
[2019-05-10] MEDS: AMIODARONE HCL 200 MG TABLET. PO SCH (09:07)
[2019-05-10] MEDS: METOPROLOL TART IMMED RELEASE 25 MG TABLET. PO SCH (09:08)
[2019-05-10] MEDS: APIXABAN 5 MG TABLET. PO SCH (09:08)
--- NOTE | 2019-05-10 10:10 | PDOC ---
PULMONARY PROGRESS NOTES Subjective PT NOT MORE SOA WANTS TO GO HOME Vitals Vital Signs Date Time Temp Pulse Resp B/P (MAP) Pulse Ox O2 Delivery O2 Flow Rate FiO2 05/10/19 09:08 108 149/78 05/10/19 07:30 Nasal Cannula 2.0 05/10/19 07:00 97.7 20 95 97.7 ROS: No Nausea, No Chest Pain, No Abdominal Pain, No Increase Cough General: Alert, No acute distress Lungs: Clear Cardiovascular: S1 Abdomen: Soft Neuro Exam: Alert Extremities: No Edema, Other Skin: Warm Labs Laboratory Tests Test 05/09/19 07:25 White Blood Count 9.9 x10^3/uL (4.0-11.0) Red Blood Count 5.10 x10^6/uL (4.30-5.70) Hemoglobin 15.9 g/dL (13.0-17.5) Hematocrit 47.1 % (39.0-53.0) Mean Corpuscular Volume 92 fL (79-100) Mean Corpuscular Hemoglobin 31 pg (25-35) Mean Corpuscular Hemoglobin Concent 34 g/dL (31-37) Red Cell Distribution Width 14.7 % (11.5-14.5) Platelet Count 163 x10^3/uL (140-400) Prothrombin Time 13.6 SEC (11.7-14.0) Prothromb Time International Ratio 1.1 (0.8-1.1) Sodium Level 143 mmol/L (136-145) Potassium Level 4.8 mmol/L (3.5-5.1) Chloride Level 105 mmol/L (98-107) Carbon Dioxide Level 29 mmol/L (21-32) Anion Gap 9 (6-14) Blood Urea Nitrogen 20 mg/dL (8-26) Creatinine 1.0 mg/dL (0.7-1.3) Estimated GFR (Cockcroft-Gault) 73.9 Glucose Level 174 mg/dL (70-99) Calcium Level 9.1 mg/dL (8.5-10.1) Medications Active Scripts Medications Dose Route/Sig Max Daily Dose Days Date Category Amiodarone Hcl 200 Mg Tablet 1 Tab PO DAILY 30 05/09/19 Reported Amiodarone Hcl 200 Mg Tablet 400 Mg PO BID 7 05/09/19 Reported Eliquis (Apixaban) 5 Mg Tablet 5 Mg PO BID 05/09/19 Reported Metoprolol Tartrate 25 Mg Tablet 1 Tab PO BID 05/09/19 Reported Lisinopril 20 Mg Tablet 1 Tab PO DAILY 05/09/19 Reported Crestor (Rosuvastatin Calcium) 20 Mg Tablet 1 Tab PO DAILY 05/09/19 Reported Metformin Hcl Er (Metformin Hcl) 500 Mg Tab.er.24h 500 Mg PO DAILYWBKFT 05/09/19 Reported Potassium Chloride 10 Meq Capsule.er 10 Meq PO DAILY 04/06/17 Reported Impression . 1. Hypoxemia/acute hypoxemic respiratory failure secondary to chronic obstructive pulmonary disease, morbid obesity, leading to shunting. 2. Clinical presentation compatible with obstructive sleep apnea. 3. Suspect secondary pulmonary hypertension. 4. Nonischemic cardiomyopathy with ejection fraction of 30-25%. 5. Yfdyq-yw-ruxlqpy diastolic heart failure. 6. Daokh-qd-nwkflky systolic heart failure. 7. Morbid obesity. Plan . 6 MIN WALK SAMM D/C LATER TODAY OUT PT SLEEP STUDY SURVALANCE CT CHEST IN OUT PT HENRY NESBITT MD May 10, 2019 10:10
--- NOTE | 2019-05-10 10:10 | PDOC ---
PROGRESS NOTES Chief Complaint Chief Complaint A/P: Shortness of breath - likely combination of suspected chronic obstructive pulmonary disease with mild acute exacerbation and also possible cor pulmonale given his low EF. Chronic combined Systolic and diastolic CHF - seems to be in mild acute exacerbation Chronic compensated hypercapnic respiratory failure - no ABG available, this was noted previously Likely obstructive sleep apnea - excessive daytime somnolence, has never had formal sleep study. He will benefit from outpatient sleep study. Hypertension - will cont home meds Non-occlusive CAD - s/p cath today Non-sustained V-tach - started on amiodarone. Cardiology following. H/o aflutter - s/p d/c cardioversion previously. On eliquis, will continue FEN - Cardiac PPX - Eliquis FULL CODE Dispo - inpatient for respiratory distress, admit to [facility] History of Present Illness History of Present Illness Mr Ocampo is a 66 yo morbidly obese male, HTN, COPD, likely ANDREIA, ex-smoker, cardiomyopathy EF 30-35% who is being admitted after a cardiac catheterization. The patient normally does not use oxygen. However, due to low oxygen saturation in the PACU, he was placed on 2 liters of nasal cannula. Saturation is in the low 90s. His CXR is pending. 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 He has had shortness of breath for almost a month (3 weeks) and it was felt this is likely cardiac related given his low EF. He has been progressively short of breath while working out on his treadmill. He does endorse daytime somnolence and poor sleep recently. Slept well overnight. Still on NCO2 for now, awaiting 6 minute walk. Vitals Vitals Vital Signs Date Time Temp Pulse Resp B/P (MAP) Pulse Ox O2 Delivery O2 Flow Rate FiO2 05/10/19 09:08 108 149/78 05/10/19 07:30 Nasal Cannula 2.0 05/10/19 07:00 97.7 20 95 97.7 Physical Exam General: Alert, Oriented X3, Cooperative, No acute distress Lungs: Clear Abdomen: Normal bowel sounds, Soft, No tenderness, No hepatosplenomegaly, No masses Extremities: No clubbing, No cyanosis, No edema, Normal pulses, No tenderness/swelling Skin: No rashes, No breakdown, No significant lesion Comment Review of Relevant I have reviewed the following items edilberto (where applicable) has been applied. Labs Laboratory Tests Test 05/09/19 07:25 White Blood Count 9.9 x10^3/uL (4.0-11.0) Red Blood Count 5.10 x10^6/uL (4.30-5.70) Hemoglobin 15.9 g/dL (13.0-17.5) Hematocrit 47.1 % (39.0-53.0) Mean Corpuscular Volume 92 fL (79-100) Mean Corpuscular Hemoglobin 31 pg (25-35) Mean Corpuscular Hemoglobin Concent 34 g/dL (31-37) Red Cell Distribution Width 14.7 % (11.5-14.5) Platelet Count 163 x10^3/uL (140-400) Prothrombin Time 13.6 SEC (11.7-14.0) Prothromb Time International Ratio 1.1 (0.8-1.1) Sodium Level 143 mmol/L (136-145) Potassium Level 4.8 mmol/L (3.5-5.1) Chloride Level 105 mmol/L (98-107) Carbon Dioxide Level 29 mmol/L (21-32) Anion Gap 9 (6-14) Blood Urea Nitrogen 20 mg/dL (8-26) Creatinine 1.0 mg/dL (0.7-1.3) Estimated GFR (Cockcroft-Gault) 73.9 Glucose Level 174 mg/dL (70-99) Calcium Level 9.1 mg/dL (8.5-10.1) Medications Current Medications Iodixanol (Visipaque 320) 100 ml STK-MED ONCE .ROUTE ; Start 05/09/19 at 07:44; Stop 05/09/19 at 07:44; Status DC Lidocaine HCl (Xylocaine-Mpf 1% 2ml Vial) 2 ml STK-MED ONCE .ROUTE ; Start 05/09/19 at 07:44; Stop 05/09/19 at 07:44; Status DC Heparin Sodium/ Sodium Chloride 1,000 ml @ As Directed STK-MED ONCE .ROUTE ; Start 05/09/19 at 07:44; Stop 05/09/19 at 07:44; Status DC Fentanyl Citrate (Fentanyl 2ml Vial) 100 mcg STK-MED ONCE .ROUTE ; Start 1 028/19 at 08:14; Stop 05/09/19 at 08:15; Status DC Midazolam HCl (Versed) 5 mg STK-MED ONCE .ROUTE ; Start 05/09/19 at 08:15; Stop 05/09/19 at 08:15; Status DC Heparin Sodium (Porcine) (Heparin Sodium) 10,000 unit STK-MED ONCE .ROUTE ; Start 05/09/19 at 08:15; Stop 05/09/19 at 08:15; Status DC Verapamil HCl (Verapamil) 5 mg STK-MED ONCE .ROUTE ; Start 05/09/19 at 08:15; Stop 05/09/19 at 08:15; Status DC Nitroglycerin (Nitroglycerin) 200 mcg STK-MED ONCE .ROUTE ; Start 05/09/19 at 08:15; Stop 05/09/19 at 08:15; Status DC Nitroglycerin (Nitroglycerin) 200 mcg 1X ONCE IART Last administered on 05/09/19at 10:09; Start 05/09/19 at 09:45; Stop 05/09/19 at 09:48; Status DC Verapamil HCl (Verapamil) 2.5 mg 1X ONCE IART Last administered on 05/09/19at 10:12; Start 05/09/19 at 09:45; Stop 05/09/19 at 09:48; Status DC Heparin Sodium (Porcine) (Heparin Sodium) 2,500 unit 1X ONCE IART Last administered on 05/09/19at 10:12; Start 05/09/19 at 09:45; Stop 05/09/19 at 09:48; Status DC Heparin Sodium/ Sodium Chloride (HEPARIN for ARTERIAL LINE FLUSH) 1,000 unit 1X ONCE IART Last administered on 05/09/19at 10:09; Start 05/09/19 at 09:45; Stop 05/09/19 at 09:48; Status DC Midazolam HCl (Versed) 5 mg 1X ONCE IV Last administered on 05/09/19at 10:10; Start 05/09/19 at 09:45; Stop 05/09/19 at 09:48; Status DC Fentanyl Citrate (Fentanyl 2ml Vial) 100 mcg 1X ONCE IV Last administered on 05/09/19at 10:10; Start 05/09/19 at 09:45; Stop 05/09/19 at 09:48; Status DC Iodixanol (Visipaque 320) 100 ml 1X ONCE IART Last administered on 05/09/19at 10:09; Start 05/09/19 at 09:45; Stop 05/09/19 at 09:48; Status DC Lidocaine HCl (Xylocaine-Mpf 1% 2ml Vial) 2 ml 1X ONCE INJ Last administered on 05/09/19at 10:09; Start 05/09/19 at 09:45; Stop 05/09/19 at 09:48; Status DC Info (CONTRAST GIVEN -- Rx MONITORING) 1 each PRN DAILY PRN MC SEE COMMENTS; Start 05/09/19 at 10:00; Stop 05/11/19 at 09:59 Heparin Sodium (Porcine) (Heparin Sodium) 5,000 unit 1X ONCE IV Last administered on 05/09/19at 10:13; Start 05/09/19 at 10:00; Stop 05/09/19 at 10:01; Status DC Iodixanol (Visipaque 320) 100 ml STK-MED ONCE .ROUTE ; Start 05/09/19 at 09:51; Stop 05/09/19 at 09:51; Status DC Sodium Chloride 1,000 ml @ 60 mls/hr [id number] IV ; Start 05/09/19 at 10:16; Stop 05/10/19 at 10:15 Nitroglycerin (Nitrostat) 0.4 mg PRN Q5MIN PRN SL CHEST PAIN; Start 05/09/19 at 10:30; Stop 05/10/19 at 10:29 Amiodarone HCl (Cordarone) 400 mg BID PO Last administered on 05/10/19at 09:07; Start 05/09/19 at 12:40; Stop 05/16/19 at 12:39 Amiodarone HCl (Cordarone) 200 mg DAILY PO ; Start 05/17/19 at 09:00; Stop 05/18/19 at 08:59 Amiodarone HCl (Cordarone) 200 mg DAILY PO ; Start 05/10/19 at 09:00; Status Cancel Apixaban (Eliquis) 5 mg BID PO Last administered on 05/10/19at 09:08; Start 05/09/19 at 21:00 Lisinopril (Prinivil) 20 mg DAILY PO Last administered on 05/10/19at 09:08; Start 05/10/19 at 09:00 Metoprolol Tartrate (Lopressor) 25 mg BID PO Last administered on 05/10/19at 09:08; Start 05/09/19 at 21:00 Atorvastatin Calcium (Lipitor) 80 mg QHS PO Last administered on 05/09/19at 20:51; Start 05/09/19 at 21:00 Active Scripts Active Reported Omeprazole 20 Mg Capsule.dr 20 Mg PO DAILY Flomax (Tamsulosin Hcl) 0.4 Mg Cap.er.24h 0.4 Mg PO QHS Amoxicillin 500 Mg Capsule 500 Mg PO Q8HRS done 05/14/19 Atorvastatin Calcium 40 Mg Tablet 40 Mg PO QHS Amiodarone Hcl 200 Mg Tablet 1 Tab PO DAILY 30 Days Amiodarone Hcl 200 Mg Tablet 400 Mg PO BID 7 Days Eliquis (Apixaban) 5 Mg Tablet 5 Mg PO BID Metoprolol Tartrate 25 Mg Tablet 1 Tab PO BID Lisinopril 20 Mg Tablet 1 Tab PO DAILY Metformin Hcl Er (Metformin Hcl) 500 Mg Tab.er.24h 500 Mg PO BIDWMEALS Potassium Chloride 10 Meq Capsule.er 10 Meq PO DAILY Vitals/I & O Vital Sign - Last 24 Hours 05/09/19 05/09/19 05/09/19 05/09/19 10:12 10:14 10:15 10:30 Pulse 102 64 60 63 Resp 21 23 26 B/P (MAP) 106/65 Pulse Ox 95 94 94 O2 Delivery Venturi Mask Nasal Cannula Nasal Cannula O2 Flow Rate 6.0 2.0 2.0 05/09/19 05/09/19 05/09/19 05/09/19 10:45 11:00 11:15 11:30 Pulse 62 66 66 64 Resp 25 23 24 21 Pulse Ox 92 90 90 92 O2 Delivery Nasal Cannula Nasal Cannula Nasal Cannula Nasal Cannula O2 Flow Rate 1.0 1.0 1.0 1.0 05/09/19 05/09/19 05/09/19 05/09/19 11:45 12:00 12:15 12:30 Pulse 64 66 66 66 Resp 21 17 22 22 Pulse Ox 91 92 87 93 O2 Delivery Nasal Cannula Nasal Cannula Room Air Nasal Cannula O2 Flow Rate 1.0 2.0 2.0 05/09/19 05/09/19 05/09/19 05/09/19 12:40 13:25 13:30 15:00 Temp 97.6 98.8 97.6 98.8 Pulse 73 70 110 Resp 20 20 B/P (MAP) 128/65 126/72 (90) 119/65 (83) Pulse Ox 95 94 O2 Delivery Nasal Cannula Nasal Cannula Nasal Cannula O2 Flow Rate 2.0 2.0 2.0 05/09/19 05/09/19 05/09/19 05/09/19 15:21 19:00 20:00 20:25 Temp 97.9 97.9 Pulse 92 96 Resp 16 B/P (MAP) 119/63 (81) 114/70 (85) Pulse Ox 96 O2 Delivery Nasal Cannula Nasal Cannula Nasal Cannula O2 Flow Rate 2.0 2.0 05/09/19 05/09/19 05/09/19 05/10/19 20:51 20:52 23:45 03:07 Temp 97.5 97.5 97.5 97.5 Pulse 96 96 96 81 Resp 16 18 B/P (MAP) 114/70 114/70 133/83 (100) 133/76 (95) Pulse Ox 94 94 O2 Delivery Nasal Cannula Nasal Cannula O2 Flow Rate 2.0 2.0 05/10/19 05/10/19 05/10/19 05/10/19 07:00 07:30 09:07 09:08 Temp 97.7 97.7 Pulse 108 108 108 Resp 20 B/P (MAP) 149/78 (101) 149/78 149/78 Pulse Ox 95 O2 Delivery Nasal Cannula Nasal Cannula O2 Flow Rate 2.0 2.0 05/10/19 09:08 Pulse 108 B/P (MAP) 149/78 Intake and Output 05/09/19 05/09/19 05/10/19 15:00 23:00 07:00 Intake Total 300 ml Balance 300 ml SUZANNE TONY MD May 10, 2019 10:10
[2019-05-10] MEDS ORDERED: METOPROLOL SUCC 24HR ER 50 MG TAB.ER.24H. PO SCH (10:15)
[2019-05-10] MEDS ORDERED: DEXTROSE 50% 25 GM / 50ML DISP.SYRIN. IV PRN (10:15)
--- NOTE | 2019-05-10 10:17 | NUR ---
SS following for discharge planning. SS reviewed pt chart. Pt is from home and is currently requiring oxygen. Pt does not have oxygen at home. Six minute walk ordered on 05/09/2019. SS awaiting results at this time. SS will continue to follow for discharge planning.
--- NOTE | 2019-05-10 10:25 | PDOC ---
NISSA CHACON MARBLE WORKER 05/10/19 1025: CARDIO Progress Notes Date and Time Date of Service 05/10/2019 Time of Evaluation 1000 Vitals Vitals Vital Signs Date Time Temp Pulse Resp B/P (MAP) Pulse Ox O2 Delivery O2 Flow Rate FiO2 05/10/19 09:08 108 149/78 05/10/19 07:30 Nasal Cannula 2.0 05/10/19 07:00 97.7 20 95 97.7 Weight Weight [ ] Input and Output Intake and Output Intake and Output 05/10/19 07:00 Intake Total 300 ml Balance 300 ml Intake Oral 300 ml # Voids 1 # Bowel Movements 1 Physical Exam HEENT: Neck Supple W Full Motion Chest: Symmetric LUNGS: Other (diminished) Heart: S1S2, irregularly irregular (AFIB) Abdomen: Soft N/T Extremities: Other (1-2+ bilateral LE pitting edema) Neurology: alert, oriented, follow commands Other Exams right wrist arteriotomy site intact, no erythema/swelling, neurovascular status to right hand intact. Assessment Assessment 1. Acute on chronic respiratory failure with COPD, CHF and possible ANDREIA: pulmonary following 2. Chronic diastolic/systolic CHF: appears compensated 3. NICM: EF at 30% 4. 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 PPM in situ: with known SSS. Biotronik in place. 6. HTN 7. PAFIB: remains in AFIB, rate controlled Recommendations 1. Continue with amiodarone, eliquis and toprol. Baby ASA and statin 2. Consider ANDREIA workup. EKG 3. Lisinopril for now. Consider outpt entresto. Start on lasix. 4. Continue with optimization and will reeval EF in 3 months and consider upgrading to AICD 5. Daily wt. FR 2L 6. Home health for CHF/CM 7. Outpt CVN will be considered if remains in AFIB SHON POWELL MD 05/10/19 1710: CARDIO Progress Notes Assessment Assessment Patient seen and examined. Agree with ANALOG DESIGN ENGINEER's assessment and plan. Cardiac catheterization showed nonobstructive coronary artery disease. Cardio myopathy clinically well compensated. Persistent AF rate controlled. Continue amiodarone for antiarrhythmic therapy. We will consider cardioversion as outpatient Repeat 2-D echo in 3 months to evaluate the need for pacer upgrade to ICD NISSA CHACON APRN May 10, 2019 10:25 SHON POWELL MD May 10, 2019 17:10
[2019-05-10 11:00] VITALS: BP 145/80
[2019-05-10] MEDS ORDERED: FUROSEMIDE 20 MG TABLET PO SCH (11:00)
--- NOTE | 2019-05-10 11:13 | EKG ---
[facility] [address] [place] [address] Test Date: 2019-05-10 Test Time: 12:08:17 Pat Name: NORBERTO GRAHAM Department: Room: 201 1 Gender: M Electron Gun Assembler: ZEINAB : 1950 Requested By: NISSA CHACON Order Number: [id number] Reading MD: Measurements Intervals [place] Rate: 60 P: -32 [place]: 120 QRS: -69 QRSD: 162 T: 71 QT: 428 QTc: 432 Interpretive Statements SINUS RHYTHM ABNORMAL LEFT AXIS DEVIATION NON SPECIFIC INTRAVENTRICULAR BLOCK ABNORMAL ECG RI6.01 Compared to ECG 07/17/2017 13:52:15 First degree AV block no longer present Right bundle-branch block no longer present Myocardial infarct finding no longer present
[2019-05-10] MEDS ORDERED: METO50TA4 PO (11:53)
[2019-05-10] MEDS ORDERED: INSULIN LISPRO 300 UNITS/3 ML VIAL. SQ SCH (12:00)
--- NOTE | 2019-05-10 12:45 | SNU/HH DC ---
DISCHARGE WITH HOME HEALTH DISCHARGE INFORMATION: Discharge Date: May 10, 2019 Final Diagnosis: Acute hypoxic respiratory failure, cor pulmonale Condition on Discharge: Stable CODE STATUS: Code Status: Full HOME HEALTH: Face to Face: I certify this patient is under my care and that I, or a nurse practitioner or physician's periodontal assistant working with me, had a face to face encounter that meets the physician face to face encounter requirements with this patient on 05/10/19. Medical Complications: CHF, COPD [facility] For: Assess Cardiopulm Status, Assess/Skilled Observatio RN For Eval/Treatment: Yes Pt Meets Homebound Status: Limited distance walking POST DISCHARGE ORDERS: Activity Instructions for Disc: Activity as tolerated DIET AFTER DISCHARGE: Cardiac Wound/Incision Care: May get incision wet FOLLOW-UP: Follow up with: Dr. Russell - cardiology - 2-4 weeks TREATMENT/EQUIPMENT ORDERS: Discharge Respiratory Equipmen: Oxygen CERTIFICATION STATEMENT: Certification Statement: Certification Statement: Based on the above finding, I certify that this patient is confined to the home and needs intermittent jail care, physical therapy and/or speech therapy, or continues to need occupational therapy.~ This patient is under my care, and I have initiated the establishment of the plan of care.~ This patient will be followed by myself or a community physician who will periodically review the plan of care. Home Meds Active Scripts Metoprolol Succinate (Toprol Xl) 50 Mg Tab.er.24h, 50 MG PO DAILY for CHF for 30 Days, #30 TAB.SR 2 Refills Prov:SUZANNE TONY MD 05/10/19 Reported Medications Omeprazole (OMEPRAZOLE) 20 Mg Capsule.dr, 20 MG PO DAILY for stomach 05/09/19 Tamsulosin Hcl (FLOMAX) 0.4 Mg Cap.er.24h, 0.4 MG PO QHS for md order 05/09/19 Atorvastatin Calcium (ATORVASTATIN CALCIUM) 40 Mg Tablet, 40 MG PO QHS for HDL 05/09/19 Amiodarone Hcl (AMIODARONE HCL) 200 Mg Tablet, 1 TAB PO DAILY for Heart Rhythm for 30 Days, #30 TAB 3 Refills 05/09/19 Amiodarone Hcl (AMIODARONE HCL) 200 Mg Tablet, 400 MG PO BID for Heart Rhythm for 7 Days, TAB 05/09/19 Apixaban (ELIQUIS) 5 Mg Tablet, 5 MG PO BID for Afib/Aflutter, TAB 05/09/19 Lisinopril (LISINOPRIL) 20 Mg Tablet, 1 TAB PO DAILY for HTN, #30 TAB 5 Refills 05/09/19 Metformin Hcl (METFORMIN HCL ER) 500 Mg Tab.er.24h, 500 MG PO BIDWMEALS for ANTI-DIABETIC, TAB 0 Refills 05/09/19 Potassium Chloride (POTASSIUM CHLORIDE) 10 Meq Capsule.er, 10 MEQ PO DAILY, TAB.SR 04/06/17 Discontinued Reported Medications Amoxicillin (AMOXICILLIN) 500 Mg Capsule, 500 MG PO Q8HRS for teeth done 05/14/19 05/09/19 Metoprolol Tartrate (METOPROLOL TARTRATE) 25 Mg Tablet, 1 TAB PO BID for Afib/Aflutter, #180 TAB 1 Refill 05/09/19 Apixaban (ELIQUIS) 2.5 Mg Tablet, 2.5 MG PO DAILY for Afib/Aflutter, TAB 05/09/19 Apixaban (ELIQUIS) 5 Mg Tablet, 5 MG PO BID, TAB 07/15/17 Furosemide (LASIX) 20 Mg Tablet, 20 MG PO DAILY, TAB 04/06/17 Aspirin (ASPIR 81) 81 Mg Tablet.dr, 1 TAB PO HS, #30 TAB 5 Refills 03/16/17 Simvastatin (SIMVASTATIN) 40 Mg Tablet, 40 MG PO QEVNG for FOR CHOLESTEROL, #30 TAB 0 Refills 03/16/17 Amlodipine Besylate (AMLODIPINE BESYLATE) 10 Mg Tablet, 10 MG PO DAILYWLUN, TAB 03/16/17 Lisinopril (LISINOPRIL) 20 Mg Tablet, 20 MG PO BID for FOR HYPERTENSION, #30 TAB 0 Refills 03/16/17 SUZANNE TOYN MD May 10, 2019 12:45
[2019-05-10] MEDS ORDERED: ALBUTEROL SULFATE 2.5 MG/3 ML NEBU. INH ONE (14:45)
--- NOTE | 2019-05-10 15:07 | NUR ---
SS following up with discharge planning. Discharge orders received for home healthcare. SS met with pt and discussed home healthcare and home healthcare options. Pt reported having no preference of company. Nurse navigator, Alyson, from [facility], ; fax [phone], met with pt and discussed home healthcare. Pt agreeable to home healthcare. Referral and discharge orders phoned and faxed to [facility]. Pt's RN notified.
--- NOTE | 2019-05-10 16:03 | NUR ---
SS following up with discharge planning. Order for oxygen received. SS phoned and faxed oxygen order and referral to [facility], ; fax [phone]. Receipt of oxygen ordered confirmed by Lalo at [facility]. Pt provided with tank for home.
--- NOTE | 2019-05-10 16:45 | NUR ---
PATIENT DISCHARGED TO HOME. DISCHARGE INSTRUCTION GIVEN. PIV AND HEART MONITOR REMOVED. ESCORTED PATIENT INTO A PRIVATE VEHICLE.
[2019-05-11] MEDS ORDERED: ASPIRIN ENTERIC COATED 81 MG TABLET.DR. PO SCH (08:00)
--- NOTE | 2019-05-11 12:49 | RESP ---
DATE OF SERVICE: 05/10/2019 The patient underwent spirometry dated 05/10/2019. The FEV1 to FVC ratio was 63%, FEV1 was 1.33 liters at 39% of predicted, FVC was 2.08 liters at 45% of predicted. There was a 23% bronchodilator response. IMPRESSION: 1. Severe air flow limitation. 2. Significant bronchodilator response. HENRY NESBITT MD DR: ABHILASH/cedric JOB#: [id number] / [id number]
--- NOTE | 2019-05-11 16:13 | PDOC3 ---
Discharge Summary Visit Information Date of Admission: May 09, 2019 Date of Discharge: May 10, 2019 Admitting Diagnosis: Hypoxic resp failure Final Diagnosis Hypoxic resp failure Brief Hospital Course Allergies Allergies Coded Allergies Type Severity Reaction Last Updated Verified No Known Drug Allergies 07/17/17 No Vital Signs Vital Signs Date Time Temp Pulse Resp B/P (MAP) Pulse Ox O2 Delivery O2 Flow Rate FiO2 05/10/19 14:43 94 05/10/19 11:00 98.6 84 20 145/80 (101) Nasal Cannula 2.0 98.6 Lab Results Laboratory Tests Test 05/10/19 12:13 Glucose (Fingerstick) 218 mg/dL (70-99) Brief Hospital Course Mr Ocampo is a 66 yo morbidly obese male, HTN, COPD, likely ANDREIA, ex-smoker, cardiomyopathy EF 30-35% who is being admitted after a cardiac catheterization. The patient normally does not use oxygen. However, due to low oxygen saturation in the PACU, he was placed on 2 liters of nasal cannula. Saturation is in the low 90s. His CXR is pending. He is noted in non-sustained V-tach, given amiodarone in lab[employer]ing and salv[employer], admit to [facility] for further care. He has had shortness of breath for almost a month (3 weeks) and it was felt this is likely cardiac related given his low EF. He has been progressively short of breath while working out on his treadmill. He does endorse daytime somnolence and poor sleep recently. Slept well overnight. Still on NCO2 for now. 6 minute walk - SpO2 = 87% at rest on room air. Oxygen applied and eventually titrated to 3 lpm nc to keep Spo2 at or above 90%. Patient ambulated in hallway x 6 minutes approximately 700 feet. SpO2 = 96% at 3 minutes of exertion. Oxygen decreased to 2 lpm nc. SpO2 range on 2 lpm nc = 93 - 95%. Recommend oxygen at 2 lpm nc at rest and with exertion. The patient underwent spirometry dated 05/10/2019. The FEV1 to FVC ratio was 63%, FEV1 was 1.33 liters at 39% of predicted, FVC was 2.08 liters at 45% of pre dicted. There was a 23% bronchodilator response. IMPRESSION: 1. Severe air flow limitation. 2. Significant bronchodilator response. A/P: Shortness of breath - likely combination of suspected chronic obstructive pulmonary disease with mild acute exacerbation and also possible cor pulmonale given his low EF. Chronic combined Systolic and diastolic CHF - seems to be in mild acute exacerbation Chronic compensated hypercapnic respiratory failure - no ABG available, this was noted previously Likely obstructive sleep apnea - excessive daytime somnolence, has never had formal sleep study. He will benefit from outpatient sleep study. Hypertension - will cont home meds Non-occlusive CAD - s/p cath today Non-sustained V-tach - started on amiodarone. Cardiology following. H/o aflutter - s/p d/c cardioversion previously. On eliquis, will continue Greater than 30 minutes spent on d/c Discharge Information Condition at Discharge: Improved Follow Up: Weeks (1) Disposition/Orders: D/C to Home w/ HH ([facility] and home O2) Scheduled Amiodarone Hcl (Amiodarone Hcl) 200 Mg Tablet, 400 MG PO BID for Heart Rhythm for 7 Days, (Reported) Entered as Reported by: DOMINIQUE WESTON on 05/09/191044 Last Action: New Order on 05/09/191044 by DOMINIQUE WESTON Amiodarone Hcl (Amiodarone Hcl) 200 Mg Tablet, 1 TAB PO DAILY for Heart Rhythm for 30 Days, #30 Ref 3 (Reported) Entered as Reported by: DOMINIQUE WESTON on 05/09/191044 Last Action: Continued on 05/09/191336 by SUZANNE TONY MD Apixaban (Eliquis) 5 Mg Tablet, 5 MG PO BID for Afib/Aflutter, (Reported) Entered as Reported by: DOMINIQUE WESTON on 05/09/19 0743 Last Taken: Unknown Dose on 05/07/19 Last Action: Continued on 05/09/191336 by SUZANNE TONY MD Atorvastatin Calcium (Atorvastatin Calcium) 40 Mg Tablet, 40 MG PO QHS for HDL, (Reported) Entered as Reported by: BRANDON RICHARDSON on 05/09/19 1550 Last Action: New Order on 05/09/191549 by BRANDON RICHARDSON Lisinopril (Lisinopril) 20 Mg Tablet, 1 TAB PO DAILY for HTN, #30 Ref 5 (Reported) Entered as Reported by: DOMINIQUE WESTON on 10/28/19 0726 Last Taken: Unknown Dose on 05/09/19 Last Action: Continued on 05/09/19 1337 by SUZANNE TONY MD Metformin Hcl (Metformin Hcl Er) 500 Mg Tab.er.24h, 500 MG PO BIDWMEALS for ANTI-DIABETIC, Ref 0 (Reported) Entered as Reported by: DOMINIQUE WESTON on 05/09/19725 Last Taken: Unknown Dose on 05/08/19 Last Action: Edited on 05/09/191549 by BRANDON RICHARDSON Metoprolol Succinate (Toprol Xl) 50 Mg Tab.er.24h, 50 MG PO DAILY for CHF for 30 Days, #30 Ref 2 Prescribed by: SUZANNE TONY MD on 05/10/19 1153 Omeprazole (Omeprazole) 20 Mg Capsule.dr, 20 MG PO DAILY for stomach, (Reported) Entered as Reported by: BRANDON RICHARDSON on 05/09/191549 Last Action: New Order on 05/09/191549 by BRANDON RICHARDSON Potassium Chloride (Potassium Chloride) 10 Meq Capsule.er, 10 MEQ PO DAILY, (Reported) Entered as Reported by: OSMAN ALLEN on 04/06/17 0703 Last Taken: Unknown Dose on 05/08/19 Last Action: Reviewed on 05/09/19725 by DOMINIQUE WESTON Tamsulosin Hcl (Flomax) 0.4 Mg Cap.er.24h, 0.4 MG PO QHS for md order, (Reported) Entered as Reported by: BRANDON RICHARDSON on 05/09/191549 Last Action: New Order on 05/09/191549 by BRANDON RICHARDSON Discontinued Medications Amlodipine Besylate (Amlodipine Besylate) 10 Mg Tablet, 10 MG PO DAILYWLUN, (Reported) Entered as Reported by: JAYLIN TUCKER on 03/16/17 1730 Last Action: Discontinued on 05/09/19725 by DOMINIQUE WESTON Amoxicillin (Amoxicillin) 500 Mg Capsule, 500 MG PO Q8HRS for teeth, (Reported) done 05/14/19 Entered as Reported by: BRANDON RICHARDSON on 05/09/19 155 Last Action: New Order on 05/09/191549 by BRANDON RICHRADSON Apixaban (Eliquis) 5 Mg Tablet, 5 MG PO BID, (Reported) Entered as Reported by: WILBERT ANDRADE on 07/15/17 180 Last Action: Discontinued on 05/09/19725 by DOMINIQUE WESTON Apixaban (Eliquis) 2.5 Mg Tablet, 2.5 MG PO DAILY for Afib/Aflutter, (Reported) Entered as Reported by: DOMINIQUE WESTON on 05/09/19725 Last Taken: Unknown Dose on 05/07/19 Last Action: Discontinued on 05/09/19742 by DOMINIQUE WESTON Aspirin (Aspir 81) 81 Mg Tablet., 1 TAB PO HS, #30 Ref 5 (Reported) Entered as Reported by: JAYLIN TUCKER on 03/16/171729 Last Action: Discontinued on 05/09/19725 by DOMINIQUE WESTON Furosemide (Lasix) 20 Mg Tablet, 20 MG PO DAILY, (Reported) Entered as Reported by: OSMAN ALLEN on 04/06/17 07 Last Action: Discontinued on 05/09/19725 by DOMINIQUE WESTON Lisinopril (Lisinopril) 20 Mg Tablet, 20 MG PO BID for FOR HYPERTENSION, #30 Ref 0 (Reported) Entered as Reported by: JAYLIN TUCKER on 03/16/171729 Last Action: Discontinued on 05/09/19725 by DOMINIQUE WESTON Metoprolol Tartrate (Metoprolol Tartrate) 25 Mg Tablet, 1 TAB PO BID for Afib/Aflutter, #180 Ref 1 (Reported) Entered as Reported by: DOMINIQUE WESTON on 05/09/19725 Last Action: Discontinued on 05/10/19 1104 by Canelo Mendoza Simvastatin (Simvastatin) 40 Mg Tablet, 40 MG PO QEVNG for FOR CHOLESTEROL, #30 Ref 0 (Reported) Entered as Reported by: JAYLIN TUCKER on 03/16/171729 Last Action: Discontinued on 05/09/19725 by SUZANNE NIELSEN MD May 11, 2019 16:13
[2019-05-17] MEDS ORDERED: AMIODARONE HCL 200 MG TABLET. PO SCH (09:00)
== END 2019-05-10 16:45 | disposition home health service (06) | DRG 286 ==
LOC: CCL 06:56 → 2 NORTH 12:20
PROVIDERS: ADMIT Internal Medicine Cardiovascular Disease; ATTEND Internal Medicine Cardiovascular Disease
PROC: 4A023N7 Measurement of Cardiac Sampling and Pressure, Left Heart, Percutaneous Approach (ICD-10-PCS; principal; 2019-05-09)
PROC: B211YZZ Fluoroscopy of Multiple Coronary Arteries using Other Contrast (ICD-10-PCS; 2019-05-09)
PROC: 4A033BC Measurement of Arterial Pressure, Coronary, Percutaneous Approach (ICD-10-PCS; 2019-05-09)
DX: I11.0 Hypertensive heart disease with heart failure (principal); J96.22 Acute and chronic respiratory failure with hypercapnia; J96.21 Acute and chronic respiratory failure with hypoxia; J44.1 Chronic obstructive pulmonary disease with (acute) exacerbation; I47.2 Ventricular tachycardia; I48.19 Other persistent atrial fibrillation; I50.43 Acute on chronic combined systolic (congestive) and diastolic (congestive) heart failure; I42.8 Other cardiomyopathies; I25.10 Atherosclerotic heart disease of native coronary artery without angina pectoris; E78.5 Hyperlipidemia, unspecified; K21.9 Gastro-esophageal reflux disease without esophagitis; M19.90 Unspecified osteoarthritis, unspecified site; E11.9 Type 2 diabetes mellitus without complications; E66.01 Morbid (severe) obesity due to excess calories; G47.33 Obstructive sleep apnea (adult) (pediatric); I27.29 Other secondary pulmonary hypertension; I49.5 Sick sinus syndrome; I27.81 Cor pulmonale (chronic); Z96.659 Presence of unspecified artificial knee joint; Z95.0 Presence of cardiac pacemaker; Z87.891 Personal history of nicotine dependence; Z68.36 Body mass index [BMI] 36.0-36.9, adult; Z98.49 Cataract extraction status, unspecified eye; Z82.49 Family history of ischemic heart disease and other diseases of the circulatory system; Z79.84 Long term (current) use of oral hypoglycemic drugs
CPT/HCPCS: 36415; 71046; 80048; 82962; 83036; 85027; 85610; 93005; 93458; 93571; 94060; 94618; 94640; 99152; 99153; C1769; C1892; J1644; J1815; J2250; J3010; J3490; J7613; Q9967; G0378

== ENCOUNTER → 2019-06-22 | Outpatient (CLI) | payer MEDICARE, BC ==
[~2019-06-22] MED LIST changes: +AMIO200T4 PO; +APIX2.5T PO; +ATOR40TA59 PO; +CRESTOR20 MG PO; +METF500T11 PO; +METO25TA4 PO; +METO50TA4 PO; +OMEP-229 PO; +SIMV40TA18 PO; -SIMV40TA3 PO; +TAMS0.4C97 PO; +ZOLPIDEM 5 MG TABLET. PO ONE
--- NOTE | 2019-06-23 21:47 | SLEEP ---
DATE OF STUDY: 06/22/2019 SLEEP STUDY ATTENDING PHYSICIAN: Dr. Vicky Sanchez REFERRING PHYSICIAN: Dr. Hudson. The patient is 69-year-old who weighs 264 pounds with a BMI of 64. The patient's Lotus score was 11. The patient underwent split night study performed at [facility]. During the night study, the patient spent 425 minutes in bed and slept for 343 minutes with a sleep efficiency of 81%. Sleep latency was 40 minutes with a REM latency of 160 minutes. Sleep architecture showed increased stage 1 and stage 2 sleep, reduced slow wave and reduced REM sleep. During the initial diagnostic portion of the study, the patient slept for 70 minutes. During that time, there were 14 obstructive apneas, 1 mixed apnea, no central apneas and 72 hypopneas. The patient's apnea hypopnea index was 75 per hour, supine index 79 per hour. REM sleep was not seen during the diagnostic portion. EKG monitoring revealed an average heart rate of 67 beats per minute, no sustained arrhythmias observed. PLMS were seen at index of 61 per hour and 4 per hour caused EEG arousals. Nocturnal oximetry study during the diagnostic portion revealed a mean oxygen saturation of 87% with lowest of 59%. The 68% of time oxygen saturation remained between 80% and 89% and 20% of time between 70% and 79% and another 7% of time between 60% and 69%. The patient met the criteria for CPAP initiation. It was started at 5 cm water and titrated up to 20 cm water. At the final pressure, the patient slept for 156 minutes. The patient had no supine sleep, but REM sleep. The patient's AHI was reduced to 10 per hour. The patient's oxygen saturation still fluctuated in the mid 80s. Optimum CPAP pressure was not achieved. I would recommend the patient should be placed on BiPAP at a pressure of 22/18 with a review of the download data. The patient used medium size full face mask. IMPRESSION: 1. Severe sleep apnea-hypopnea syndrome at an AHI of 75 mL per hour. 2. Nocturnal hypoxia secondary to obstructive sleep apnea and not completely resolved on final CPAP pressure of 10 cm water. 3. Severe PLMS. RECOMMENDATIONS: 1. CPAP at a maximum pressure of 20 cm water did not completely eliminate the patient's sleep apnea as the patient's AHI was still 10 per hour. I would recommend that the patient should be placed on BiPAP at a pressure of 22/16. I would also recommend that the patient should have a download data in 4-6 weeks to assess efficacy of BiPAP and make sure AHI remains less than 5 per hour. 2. Weight loss is strongly advised. 3. Avoid COUNTER MAKER depressants. 4. Cautioned regarding driving until symptoms of sleep apnea resolve with the use of BiPAP. 5. The patient should also be further evaluated for symptoms of restless legs during the day. ROYAL SANDERS MD DR: GOSIA/cedric JOB#: [id number] / [id number] VICKY Guan MD, SABATO MD
== END | disposition home or self-care (01) ==
LOC: SLPLAB 18:23
PROVIDERS: ATTEND Internal Medicine Pulmonary Disease
DX: G47.33 Obstructive sleep apnea (adult) (pediatric) (principal); G47.61 Periodic limb movement disorder
CPT/HCPCS: 95810

== ENCOUNTER → 2019-09-13 | Outpatient (CLI) | payer MEDICARE, BC ==
[~2019-09-13] MED LIST changes: -OMEP-229 PO; +OMEP20CA16 PO; -ZOLPIDEM 5 MG TABLET. PO ONE
--- NOTE | 2019-09-13 10:47 | CARD ---
MR#: [id number] Date of Study: 09/13/2019 Ordering Physician: SHON POWELL, Referring Physician: SHON POWELL, Tech: Mery Jin APPROVED REPORT EXAM: Two-dimensional and M-mode echocardiogram with Doppler and color Doppler. Other Information Quality : AverageHR: 60bpm INDICATION Cardiomyopathy Surgery/Intervention Pacemaker: RISK FACTORS Diabetes 2D DIMENSIONS RVDd3.9 (2.9-3.5cm)Left Atrium(2D)4.1 (1.6-4.0cm) IVSd1.3 (0.7-1.1cm)Aortic Root(2D)3.9 (2.0-3.7cm) LVDd5.2 (3.9-5.9cm)LVOT Diameter2.3 (1.8-2.4cm) PWd1.2 (0.7-1.1cm)LVDs3.7 (2.5-4.0cm) FS (%) 29.2 %SV71.6 ml Aortic Valve AoV Peak Jack.175.4cm/sAoV VTI31.6cm AO Peak GR.12.3mmHgLVOT Peak Jack.150.1cm/s LVOT VTI 29.13cmAO Mean GR.6mmHg [place] (VMAX)2.75sv6INM (VTI)3.81cm2 AI P 1/2 Eajm228hc Mitral Valve MV E Hyaztblp58.4cm/sMV DECEL DLQJ171bq MV A Xbafhykz46.4cm/sMV E Mean Gr.1mmHg MV UXT87ccC/A Ratio0.7 MVA (PHT)2.88cm2 TDI E/Lateral E'9.8E/Medial E'11.3 Pulmonary Valve PV Peak Temksmas547.0cm/sPV Peak Grad.8mmHg Tricuspid Valve TR P. Fngxtzka384ef/sRAP HPEYNFFA4zaSg TR Peak Gr.04haSfSADF29jyNl Pulmonary Vein S1 Ubagmfng77.0cm/sD2 Vowbjirm64.0cm/s PVa aecvgcdh174gufm LEFT VENTRICLE The left ventricle is normal size. There is mild concentric left ventricular hypertrophy. The left ve ntricular systolic function is mildly decreased.l The Ejection Fraction is estimated at 45%. Septal m otion consistent with conduction abnormality. Transmitral Doppler flow pattern is Grade I-abnormal r elaxation pattern. RIGHT VENTRICLE The right ventricle is mildly dilated. There is normal right ventricular wall thickness. Systolic fun ction is borderline reduced. There are device leads in the right ventricle and atrium. ATRIA The left atrium size is normal. The right atrium is mildly dilated. The interatrial septum is intact with no evidence for an atrial septal defect or patent foramen ovale as noted on 2-D or Doppler imagi ng. AORTIC VALVE The aortic valve is thickened but opens well. Doppler and Color Flow revealed mild aortic regurgitati on. There is no significant aortic valvular stenosis. MITRAL VALVE The mitral valve is normal in structure and function. There is no evidence of mitral valve prolapse. There is no mitral valve stenosis. Doppler and Color-flow revealed trace mitral regurgitation. TRICUSPID VALVE The tricuspid valve is normal in structure and function. Doppler and Color Flow revealed trace tricus pid regurgitation with an estimated PAP of 38 mmHg. There is no tricuspid valve stenosis. PULMONIC VALVE The pulmonic valve is not well visualized. Doppler and Color Flow revealed trace pulmonic valvular re gurgitation. GREAT VESSELS The aortic root is normal in size. The ascending aorta is mildly dilated. The IVC is dilated and tasia apses >50% with inspiration. PERICARDIAL EFFUSION There is no evidence of significant pericardial effusion. Critical Notification Critical Value: No <Conclusion> The left ventricle is normal size. The left ventricular systolic function is mildly decreased. The Ejection Fraction is estimated at 45%. Septal motion consistent with conduction abnormality. There is mild concentric left ventricular hypertrophy. There are device leads in the right ventricle and atrium. Doppler and Color Flow revealed mild aortic regurgitation. There is no significant aortic valvular stenosis. Doppler and Color-flow revealed trace mitral regurgitation. Doppler and Color Flow revealed trace tricuspid regurgitation with an estimated PAP of 38 mmHg. Signed by : Mateus Rich MD Electronically Approved : 09/13/2019 10:46:55
== END | disposition home or self-care (01) ==
LOC: ECHO 07:32
PROVIDERS: ATTEND Internal Medicine Cardiovascular Disease
DX: I06.1 Rheumatic aortic insufficiency (principal)
CPT/HCPCS: 93306

== ENCOUNTER → 2021-01-29 | Outpatient (CLI) | payer MEDICARE, BC ==
[~2021-01-29] MED LIST changes: -AMIO200T4 PO; +AMIO200T6 PO; +AMLO-187 PO; -AMLO10TA8 PO; -LISI-334 PO; +LISI20TA18 PO; +METF-658 PO; -METF500T11 PO
--- NOTE | 2021-01-29 17:36 | CARD ---
MR#: [id number] Date of Study: 01/29/2021 Ordering Physician: SHON POWELL, Referring Physician: Kandace CUEVAS: Jose Calhoun [facility] APPROVED REPORT EXAM: Two-dimensional and M-mode echocardiogram with Doppler and color Doppler. Other Information Quality : FairHR: 77bpm Rhythm : PacemakerTechnically limited study due to body habitus and smoking. INDICATION Cardiomyopathy Surgery/Intervention Pacemaker: RISK FACTORS Hypertension Obesity Hyperlipidemia Smoking 2D DIMENSIONS Left Atrium(2D)5.1 (1.6-4.0cm)IVSd1.5 (0.7-1.1cm) Aortic Root(2D)4.5 (2.0-3.7cm)LVDd4.1 (3.9-5.9cm) PWd1.6 (0.7-1.1cm)LVDs2.8 (2.5-4.0cm) FS (%) 31.2 %SV45.2 ml Aortic Valve AoV Peak Jack.154.6cm/sAoV VTI27.0cm AO Peak GR.9.6mmHgLVOT Peak Jack.93.8cm/s LVOT VTI 18.14cmAO Mean GR.5mmHg AI P 1/2 Lhot208rn Mitral Valve MV E Klievcpw353.5cm/sMV DECEL DDPQ694vh MV A Ifkypqou16.3cm/sMV E Mean Gr.3mmHg MV PIW34xqA/A Ratio1.9 MVA (PHT)5.75cm2 TDI E/Lateral E'10.3E/Medial E'22.9 Pulmonary Valve PV Peak Ulzyhjyj59.4cm/sPV Peak Grad.3mmHg Tricuspid Valve TR P. Mpmeovgt565zm/sTR Peak Gr.23mmHg Pulmonary Vein S1 Oxaerggv51.4cm/sD2 Jpmofqcf30.6cm/s LEFT VENTRICLE The left ventricle is normal size. There is mild concentric left ventricular hypertrophy. The LV syst olic function is mildly impaired. The Ejection Fraction is estimated at 45%. There is mild global hyp okinesis of the left ventricle. Tissue Doppler imaging reveals abnormal left ventricular diastolic dy sfunction. No left ventricle thrombus noted on this study. There is no ventricular septal defect visu alized. There is no left ventricular aneurysm. There is no mass noted in the left ventricle. RIGHT VENTRICLE The right ventricle is normal size. There is normal right ventricular wall thickness. The right ventr icular systolic function is normal. Device wire noted in RV ATRIA The left atrium is moderately dilated. The right atrium size is normal. The interatrial septum is int act with no evidence for an atrial septal defect or patent foramen ovale as noted on 2-D or Doppler i maging. AORTIC VALVE The aortic valve is calcified but opens well. Doppler and Color Flow revealed mild aortic regurgitati on. There is no significant aortic valvular stenosis. There is no aortic valvular vegetation. MITRAL VALVE The mitral valve is normal in structure and function. There is no evidence of mitral valve prolapse. There is no mitral valve stenosis. Doppler and Color-flow revealed mild mitral regurgitation. TRICUSPID VALVE The tricuspid valve is normal in structure and function. Doppler and Color Flow revealed trace tricus pid regurgitation. There is no tricuspid valve prolapse or vegetation. There is no tricuspid valve st enosis. PULMONIC VALVE Pulmonic valve not well seen Doppler and Color Flow revealed no pulmonic valvular regurgitation. Ther e is no pulmonic valvular stenosis. GREAT VESSELS Aortic root is mild to moderately enlarged at 4.6 cm Ascending aorta mildly enlarged The pulmonary ar sonia is normal. The IVC is normal in size and collapses >50% with inspiration. PERICARDIAL EFFUSION There is no pleural effusion. There is no evidence of significant pericardial effusion. Critical Notification Critical Value: No <Conclusion> The left ventricle is normal size. The LV systolic function is mildly impaired. The Ejection Fraction is estimated at 45%. There is mild global hypokinesis of the left ventricle. There is mild concentric left ventricular hypertrophy. Doppler and Color Flow revealed mild aortic regurgitation. There is no significant aortic valvular stenosis. Doppler and Color-flow revealed mild mitral regurgitation. Doppler and Color Flow revealed trace tricuspid regurgitation. Aortic root is mild to moderately enlarged at 4.6 cm Signed by : Mtaeus Rich MD Electronically Approved : 01/29/2021 17:36:03
== END ==
LOC: ECHO 07:28
PROVIDERS: ATTEND Internal Medicine Cardiovascular Disease
DX: I08.0 Rheumatic disorders of both mitral and aortic valves (principal); I42.9 Cardiomyopathy, unspecified
CPT/HCPCS: 93306

== ENCOUNTER → 2021-08-07 | Outpatient (CLI) | payer MEDICARE, BC ==
[~2021-08-07] MED LIST changes: +AMIO200T53 PO; -AMIO200T6 PO; +REGADENOSON 0.4 MG/5 ML DISP.SYRIN. IV ONE
--- NOTE | 2021-08-12 09:10 | RAD ---
MR#: [id number] Date of Study: 08/07/2021 Ordering Physician: SHON POWELL, Referring Physician: JOSE ALFREDO CUEVAS Tech: RT Amarilis Saucedo) (N) APPROVED REPORT Test Type: Pharmacological Stress Nurse/Tech: Angeles Sauceda RN Test Indications: Cardiomyopathy Cardiac History: Hypertension, Diabetes,Pacemaker Medications: See Electronic Medical Record Medical History: See Electronic Medical Record Resting ECG: V paced Resting Heart Rate: 69 bpm Resting Blood Pressure: 157/81mmHg Pretest Chest Pain: No chest pain Nurse/Tech Notes Irregular and lungs diminished throughout. Patient stated he becomes incontinent if he gets too short of breath=2L n/c placed on patient during study. Consent: The procedure was explained to the patient in lay terms. Informed consent was witnessed. Randall eout was entered into [employer]. History and Stress Test performed by RT Amarilis Saucedo) (N) Pharm. Details Pharmacologic stress testing was performed using 0.4mg per 5ml of regadenoson given intravenously ove r 7-10 seconds. Stress Symptoms Dyspnea POST EXERCISE Reason for Termination: Infusion complete Target HR: No Max HR: 118 bpm 95% of Maximum Predicted HR: 124 bpm Max Blood Pressure: 163/75mmHg Blood Pressure response to exercise: Normal blood pressure response during stress. Heart Rate response to exercise: WNL Chest Pain: No. Arrhythmia: No. ST Change: No. INTERPRETATION Stress EKG Conclusion: Non-diagnostic EKG due to pacing artifact. Imaging Protocol IMAGE PROTOCOL: Rest Tc-99m/stress Tc-99m 1 day Rest: Stress: Viability: Radiopharm.Tc99m VoatomstqPr66e Sestamibi Mcgh86kTd 31.5mCi Duration 13min. 13min. Img Date 08/07/2021 08/07/2021 Inj-Img [id number]. 60min. Rest Admin Site:IV - Right AntecubitalAdministrator:RT Amarilis Saucedo)(N) Stress Admin Site: IV - Right AntecubitalAdministrator: RT Amarilis Saucedo)(N) STRESS DATA End Diast. Vol.182.0mlLVEDV index BSA80.0ml End Syst. Vol.90.0mlLVESV index BSA40.0ml Myocardial Lwjt635.0gEject. Meuaapqo98.0% Stress Scores Regional WT0.00Summed WT15.00 Regional WM0.00Summed WM8.00 LV Perfusion There is a FIXED perfusion defect in the inferior wall suggestive of prior infarct without active isc hemia. Wall Motion Mild LV dysfunction. EF 50% LV Perf. Quant 17 Seg. SSS8.00 17 Seg. SRS15.00 17 Seg. SDS0.00 Stress Defect Extent (% LAD)0.00Rest Defect Extent (% LAD)20.00Rev. Defect Extent (% LAD)0.00 Stress Defect Extent (% LCX) 10.00Rest Defect Extent (% LCX)18.80Rev. Defect Extent (% LCX)0.00 Stress Defect Extent (% RCA)25.60Rest Defect Extent (% RCA)52.20Rev. Defect Extent (% RCA)0.00 Stress Defect Extent (% LEAH)9.30Rest Defect Extent (% LEAH)29.10Rev. Defect Extent (% LEAH)0.20 Other Information Quality:Poor Risk Assessment: Moderate Risk Conclusion 1. Non-diagnostic EKG due to pacing artifact. 2. Fixed inferior wall perfusion defect suggestive of prior infarct without active ischemia. 3. Mild LV dysfunction. EF 50% 4. Moderate risk for future CV events. Signed by : Ambrose Johnson, Electronically Approved : 08/12/2021 09:09:46
== END ==
LOC: NM 08:53
PROVIDERS: ATTEND Internal Medicine Cardiovascular Disease
DX: I51.9 Heart disease, unspecified (principal); I42.9 Cardiomyopathy, unspecified
CPT/HCPCS: 78452; 93017; A9500; J2785